=== PATIENT | male | born 1990 | race Native Hawaiian/Other Pacific Islander ===

== ENCOUNTER 2017-11-08 02:07 | Emergency (ER) | payer OTHER ==
[2017-11-08 02:28] VITALS: BP 134/83; PULSE 80; RESP 20; TEMP 98.3; O2SAT 100
[2017-11-08] MEDS ORDERED: ZITHTAB PO (03:18)
--- NOTE | 2017-11-08 03:23 | PD ---
HPI Chief Complaint: Cold / Flu Symptoms Time Seen by Provider: 03:13 Travel History International Travel<30 days: No Contact w/Intl Traveler<30days: No Traveled to known affect area: No History of Present Illness HPI 26-year-old male presents emergency department we will complaints of subjective fever and chills, headache, runny nose, sneezing, coughing, sore throat, productive sputum and general malaise. He denies any nausea vomiting. No abdominal pain or diarrhea. He denies any significant myalgias or arthralgias. Symptoms are moderate. Worse with swallowing and cough. No alleviating factors. PFSH Past Medical History Medical History: Denies Significant Hx Tetanus Vaccination: < 5 Years Past Surgical History Surgical History: No Previous Surgery Social History Alcohol Use: No Tobacco Use: No Substance Use: No Allergies-Medications (Allergen,Severity, Reaction): Coded Allergies: No Known Allergies (Unverified , 11/08/17) Reported Meds & Prescriptions Reported Meds & Active Scripts Active No Active Prescriptions or Reported Medications Review of Systems Except as stated in HPI: all other systems reviewed are Neg Physical Exam Narrative GENERAL: Well-developed, well-nourished in no acute distress. Nontoxic appearing. HEAD: Normocephalic, atraumatic. EYES: Pupils equal round and reactive. Extraocular motions intact. No scleral icterus. No injection or drainage. ENT: TMs clear without erythema. The external auditory canals clear. Nose: clear . Posterior pharynx is erythematous and moist. No tonsillar edema or exudate. Uvula midline. Airway patent. NECK: Trachea midline.Supple, nontender, moves head freely. No central bony tenderness or spasm. CARDIOVASCULAR: Regular rate and rhythm without murmurs, gallops, or rubs. RESPIRATORY: Clear to auscultation. Breath sounds equal bilaterally. No wheezes , rales, or rhonchi. GASTROINTESTINAL: Abdomen soft, non-tender, nondistended. No hepato-splenomegaly , or palpable masses. No guarding. EXTREMITIES: No clubbing, cyanosis, or edema. No joint tenderness, effusion, or edema noted. BACK: Nontender without deformity or crepitance. No flank tenderness. Data Data Last Documented VS Vital Signs Date Time Temp Pulse Resp B/P (MAP) Pulse Ox O2 Delivery O2 Flow Rate FiO2 11/08/17 02:58 20 Room Air 3/15/18 02:28 98.3 80 134/83 (100) 100 Orders Orders Azithromycin (Zithromax) (11/08/17 03:30) Ed Discharge Order (11/08/17 03:17) MDM Medical Decision Making Medical Screen Exam Complete: Yes Emergency Medical Condition: Yes Medical Record Reviewed: Yes Differential Diagnosis MDM: High Differential diagnoses: Pneumonia, bronchitis, URI, strep throat, influenza Narrative Course Patient is given Zithromax 500 mg p.o. This is URI Diagnosis Primary Impression: Upper respiratory tract infection Patient Instructions: General Instructions Additional Instructions: Rest. Force fluids. Saltwater gargles. Tylenol and Advil. Mucinex D. Chloraseptic Clemons Cepastat lozenge. Zithromax. Follow-up with a primary care doctor in one week. Return to the ER if any problems. Med/Other Pt SpecificInfo: Prescription(s) given Scripts Azithromycin (Zithromax Z-Laron) 250 Mg Dspk 250 MG PO DIRECTED for Infection, #1 DSPK 0 Refills 500 MG (2 tabs) day 1, then 1 tab days 2-5. Prov: Bud Shipley MD 11/08/17 Disposition: 01 DISCHARGE HOME Condition: Stable Farhat Arango Nov 08, 2017 03:23
[2017-11-08] MEDS ORDERED: AZITHROMYCIN 250 MG TAB PO ONE (03:30)
== END 2017-11-08 03:47 | disposition home or self-care (01) ==
LOC: NEPD 02:07
DX: J06.9 Acute upper respiratory infection, unspecified (principal); R51 Headache
CPT/HCPCS: 99283